=== PATIENT | male | born 1945 | race Caucasian/White ===

== ENCOUNTER 2020-04-22 12:03 | Outpatient (CLI) | payer OTHER, MEDICARE, SELFPAY ==
--- NOTE | ~2020-04-22 | XR_ITS ---
EXAMINATION: XR foot RT standing 2V, XR foot LT standing 2V EXAM DATE: 04/22/2020 12:39 INDICATION: M05.79 - Rheumatoid arthritis with rheumatoid factor of multiple sites without organ or s ystems involvement TECHNIQUE: Frontal and lateral projections of the right foot. Frontal and lateral projections of the left foot. Images obtained standing. FINDINGS: There is bilateral pes planus. There is some periarticular osteopenia of the metatarsal he ads, can be a finding of rheumatoid arthritis. There are no bony erosions identified. Right foot: There is moderate arthritis at the right 1st metatarsophalangeal joint. There is moderat e polyarticular right midfoot arthritis. Left foot: has mild polyarticular arthritis. There are no bony erosions identified. IMPRESSION: 1. 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 2. Bilateral periarticular osteopenia, can be finding of rheumatoid. 3. Bilateral pes planus. Reviewed, dictated and finalized at location A. E SUPERINTENDENT IMPRESSION: 1. 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 2. Bilateral periarticular osteopenia, can be finding of rheumatoid. 3. Bilateral pes planus.
--- NOTE | ~2020-04-22 | XR_ITS ---
EXAMINATION: XR hand BI arthritis min 3V EXAM DATE: 04/22/2020 12:39 INDICATION: M05.79 - Rheumatoid arthritis with rheumatoid factor of multiple sites without organ or s ystems involvement . TECHNIQUE: Right hand frontal, lateral and oblique projections obtained and reviewed. Left hand fron corinna, lateral and oblique projections obtained and reviewed. Catchers projection of both hands. There is no prior study for comparison. FINDINGS: Right hand: Several small erosions at the base of the right 1st metacarpal base, and an erosion of th e scaphoid. Scapholunate joint space is maintained. There is mild to moderate loss of the 2nd and 3rd metacarpophalangeal joint spaces. 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 Otherwise mild po lyarticular osteoarthritis. 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 Several small periarticular erosions at the 2nd, 3rd, 4th met acarpal heads. Mild polyarticular osteoarthritis. IMPRESSION: 1. Left lunate chronic avascular necrosis, scapholunate dissociation and capitate settling. 2. Several small scattered erosions bilaterally, could be rheumatoid arthritis related. Reviewed, dictated and finalized at location A. FARM WORK[employer] IMPRESSION: 1. Left lunate chronic avascular necrosis, scapholunate dissociation and capit ate settling. 2. Several small scattered erosions bilaterally, could be rheumatoid arthritis related.
== END 2020-04-22 12:04 | disposition home or self-care (01) ==
LOC: ANHIMG 12:15
PROVIDERS: PCP Internal Medicine; Visit Provider Internal Medicine
DX: M05.79 Rheumatoid arthritis with rheumatoid factor of multiple sites without organ or systems involvement (principal); M89.9 Disorder of bone, unspecified; M85.872 Other specified disorders of bone density and structure, left ankle and foot; M85.871 Other specified disorders of bone density and structure, right ankle and foot; M21.42 Flat foot [pes planus] (acquired), left foot; M21.41 Flat foot [pes planus] (acquired), right foot
CPT/HCPCS: 73130; 73620